=== PATIENT | female | born 1935 | race Caucasian/White ===

== ENCOUNTER 2016-04-27 12:13 | Emergency (ER) | payer MEDICARE, BC ==
--- NOTE | 2016-04-27 18:49 | CT ---
CT BRAIN WITHOUT CONTRAST: 04/27/[address] shows no intracranial bleeding, mass, or extra-axial hematoma. A white linear strea k in the left inferior frontal lobe is thought to be more apt due to artifact than bleeding. There i s no sign of subdural blood. The ventricles are normal in size with no shift. A few basal ganglia ca lcifications are present. There is no sign of stroke, mass, or edema. The calvarium appears intact w ith no sign of fracture. The sphenoid sinus and mastoid air cells are clear. IMPRESSION: No acute intracranial findings. POS: HOME
--- NOTE | 2016-04-27 19:10 | CT ---
CT CERVICAL SPINE 04/27/[address] was done following trauma. Axial slices were acquired, then coronal and sagittal re constructions were done. No fracture, dislocation, or soft tissue swelling was seen at any cervical level. The C1 to dens dis tance is normal. There is some disc space narrowing at particularly C5-C6 along with some posterior osteophytes here. There were no findings suggestive of acute traumatic change. Degenerative changes are present throughout and details are listed below by level: C1-C2: No acute findings. C2-C3: No acute findings. C3-C4: Mild right foraminal narrowing due to osteophytes. Mild right facet arthritis. C4-C5: Mild right foraminal narrowing and moderately severe right facet arthritis. C5-C6: Moderate right foraminal stenosis and mild left foraminal stenosis. Prominent right facet art hritis. There is some mild central canal stenosis due to the posterior osteophytes with an AP diamet er of around 8 to 9 mm. C6-C7: Moderate bilateral foraminal stenosis due to osteophytes. C7-T1: No acute findings. T1-T2: No acute findings. 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 No acute traumatic findings. POS: HOME
== END 2016-04-27 13:14 | disposition home or self-care (01) ==
LOC: BURERS 12:13
DX: S16.1XXA Strain of muscle, fascia and tendon at neck level, initial encounter (principal); I10 Essential (primary) hypertension; E03.9 Hypothyroidism, unspecified; D64.9 Anemia, unspecified; Z79.899 Other long term (current) drug therapy; V49.9XXA Car occupant (driver) (passenger) injured in unspecified traffic accident, initial encounter
CPT/HCPCS: 70450; 72125